=== PATIENT | female | born 1940 | race Caucasian/White ===

== ENCOUNTER → 2023-06-26 10:23 | Outpatient (REF) | payer MEDICARE, SELFPAY ==
[2023-06-26 13:15] LABS: ALT (SGPT) 17 U/L (0-35); AST (SGOT) 27 U/L (14-36); Albumin 3.7 g/dl (3.5-5.0); Alkaline Phosphatase 74 U/L (38-126); Direct Bilirubin 0.5 mg/dl (0.0-0.4); Iron 108 ug/dl (37-170); Total Bilirubin 1.2 mg/dl (0.2-1.3); Total Protein 6.4 g/dl (6.3-8.2)
[2023-06-26 13:24] LABS: Percent Saturation 42 % (20-50); Total Iron Binding Capacity 255 ug/dl (265-497)
[2023-06-26 13:48] LABS: Ferritin 67.5 ng/ml (11.1-264.0)
[2023-06-26 14:24] LABS: Vitamin B12 344 pg/ml (239-931)
[2023-06-26 18:08] LABS: Folate 7.7 ng/ml (2.76-20)
== END ==
LOC: HWLAB 10:23
PROVIDERS: ATTENDING PHYSICIAN Internal Medicine Hematology & Oncology; FAMILY PHYSICIAN Family Medicine
DX: Z85.43 Personal history of malignant neoplasm of ovary (principal); C50.411 Malignant neoplasm of upper-outer quadrant of right female breast; Z15.01 Genetic susceptibility to malignant neoplasm of breast; K56.609 Unspecified intestinal obstruction, unspecified as to partial versus complete obstruction
CPT/HCPCS: 36415; 80076; 82607; 82728; 82746; 83540; 83550

== ENCOUNTER → 2023-07-12 09:42 | Outpatient (REF) | payer MEDICARE, SELFPAY | LOC: WDC 09:42 | PROVIDERS: ATTENDING PHYSICIAN Internal Medicine Hematology & Oncology; FAMILY PHYSICIAN Family Medicine; REFERRING PHYSICIAN Nurse Practitioner Adult Health | DX: N64.4 Mastodynia (principal) | CPT/HCPCS: 76642; 77062; 77066 ==

== ENCOUNTER → 2023-07-29 10:04 | Outpatient (REF) | payer MEDICARE, SELFPAY ==
[2023-07-29 13:05] LABS: ALT (SGPT) 16 U/L (0-35); AST (SGOT) 27 U/L (14-36); Albumin 3.9 g/dl (3.5-5.0); Alkaline Phosphatase 71 U/L (38-126); Blood Urea Nitrogen 24 mg/dl (7-17); Calcium 9.2 mg/dl (8.4-10.2); Carbon Dioxide 28 mmol/L (22-30); Chloride 108 mmol/L (98-107); Direct Bilirubin 0.1 mg/dl (0.0-0.4); Glucose 90 mg/dl (70-99); Sodium 138 mmol/L (135-145); Total Bilirubin 1.3 mg/dl (0.2-1.3); Total Protein 6.7 g/dl (6.3-8.2); eGFR 45.19
[2023-07-29 13:14] LABS: NT-proBNP 142 pg/ml
[2023-07-29 13:35] LABS: Cortisol, Random 11.4 ug/dl
[2023-07-29 15:56] LABS: Protein/creatinine Ratio 0.9; Urine Protein 99 mg/dl
[2023-07-29 19:19] LABS: CA 125 < 5.5 U/mL (0-35)
[2023-08-02 02:42] LABS: 24 Hour Urine Total Volume Random mL; Urine Collection Length Random hr; Urine Free Kappa Light Chains 10.98 mg/L (0.00-32.90); Urine Free Lambda Light Chains 2.58 mg/L (0.00-3.79)
[2023-08-02 19:42] LABS: Albumin 3.74 g/dL (3.75-5.01); Alpha 1 Globulin 0.26 g/dL (0.19-0.46); Alpha 2 Globulin 0.75 g/dL (0.48-1.05); SPEP IFE Reflex Not Done; Total Protein-Electrophoresis 6.6 g/dL (6.3-8.2)
== END ==
LOC: HWLAB 10:04
PROVIDERS: ATTENDING PHYSICIAN Specialist; FAMILY PHYSICIAN Family Medicine; REFERRING PHYSICIAN Internal Medicine Hematology & Oncology
DX: I95.89 Other hypotension (principal); Z85.43 Personal history of malignant neoplasm of ovary; C50.411 Malignant neoplasm of upper-outer quadrant of right female breast; Z15.01 Genetic susceptibility to malignant neoplasm of breast
CPT/HCPCS: 36415; 80053; 82248; 82533; 82570; 83521; 83880; 84100; 84155; 84156; 84165; 86304; 86335

== ENCOUNTER → 2023-09-23 12:23 | Outpatient (REF) | payer MEDICARE, SELFPAY | LOC: HWLAB 12:23 | PROVIDERS: ATTENDING PHYSICIAN Specialist; FAMILY PHYSICIAN Family Medicine | DX: N39.0 Urinary tract infection, site not specified (principal) | CPT/HCPCS: 87071; 87086; 87186 ==

== ENCOUNTER → 2024-01-17 08:13 | Outpatient (REF) | payer MEDICARE, SELFPAY ==
[2024-01-17 10:15] LABS: ALT (SGPT) 15 U/L (0-35); AST (SGOT) 29 U/L (14-36); Albumin 4.1 g/dl (3.5-5.0); Alkaline Phosphatase 75 U/L (38-126); Direct Bilirubin 0.3 mg/dl (0.0-0.4); Iron 101 ug/dl (37-170); Total Bilirubin 1.4 mg/dl (0.2-1.3); Total Protein 6.7 g/dl (6.3-8.2)
[2024-01-17 10:24] LABS: Percent Saturation 40 % (20-50); Total Iron Binding Capacity 252 ug/dl (265-497)
[2024-01-17 10:58] LABS: Ferritin 76.2 ng/ml (11.1-264.0)
[2024-01-17 11:29] LABS: Folate 9.4 ng/ml (2.76-20); Vitamin B12 690 pg/ml (239-931)
== END ==
LOC: HWLAB 08:13
PROVIDERS: ATTENDING PHYSICIAN Internal Medicine Hematology & Oncology; FAMILY PHYSICIAN Family Medicine
DX: Z85.43 Personal history of malignant neoplasm of ovary (principal); C50.411 Malignant neoplasm of upper-outer quadrant of right female breast; Z15.01 Genetic susceptibility to malignant neoplasm of breast; K56.609 Unspecified intestinal obstruction, unspecified as to partial versus complete obstruction; N18.31 Chronic kidney disease, stage 3a
CPT/HCPCS: 36415; 80076; 82607; 82728; 82746; 83540; 83550

== ENCOUNTER → 2024-01-28 11:33 | Outpatient (REF) | payer MEDICARE, SELFPAY ==
[2024-01-28 16:11] LABS: Urine Albumin 1+ (Neg - Trace); Urine Bilirubin Negative (Negative); Urine Character Very Cloudy (Clear); Urine Color Yellow; Urine Glucose Negative (Negative); Urine Ketone Negative (Negative); Urine Leukocyte 2+ (Negative); Urine Nitrite Negative (Negative); Urine Occult Blood 3+ (Negative); Urine Specific Gravity 1.015 (<1.030); Urine Urobilinogen Negative (Neg - 1+)
[2024-01-28 16:28] LABS: Urine Bacteria Many (Negative); Urine White Cell 50-60 /HPF (0-5)
== END ==
LOC: HWLAB 11:33
PROVIDERS: ATTENDING PHYSICIAN Urology; FAMILY PHYSICIAN Family Medicine
DX: N30.90 Cystitis, unspecified without hematuria (principal)
CPT/HCPCS: 81003; 81015; 87077; 87086; 87186

== ENCOUNTER → 2024-02-06 12:13 | Outpatient (REF) | payer MEDICARE, SELFPAY ==
[2024-02-06 16:54] LABS: Urine Albumin Trace (Neg - Trace); Urine Bilirubin Negative (Negative); Urine Character Slightly Cloudy (Clear); Urine Color Yellow; Urine Glucose Negative (Negative); Urine Ketone Negative (Negative); Urine Leukocyte 2+ (Negative); Urine Nitrite Negative (Negative); Urine Occult Blood 3+ (Negative); Urine Urobilinogen Negative (Neg - 1+)
[2024-02-06 17:28] LABS: Urine Bacteria Many (Negative); Urine White Cell 30-40 /HPF (0-5)
== END ==
LOC: HWLAB 12:13
PROVIDERS: ATTENDING PHYSICIAN Specialist; FAMILY PHYSICIAN Family Medicine
DX: N39.0 Urinary tract infection, site not specified (principal)
CPT/HCPCS: 81003; 81015; 87077; 87086; 87186

== ENCOUNTER → 2024-02-13 07:45 | Outpatient (REF) | payer MEDICARE, SELFPAY | LOC: HWRAD 07:45 | PROVIDERS: ATTENDING PHYSICIAN Internal Medicine Hematology & Oncology; FAMILY PHYSICIAN Family Medicine | DX: Z85.43 Personal history of malignant neoplasm of ovary (principal); C50.411 Malignant neoplasm of upper-outer quadrant of right female breast; Z15.01 Genetic susceptibility to malignant neoplasm of breast | CPT/HCPCS: 76700 ==

== ENCOUNTER → 2024-02-27 11:10 | Outpatient (REF) | payer MEDICARE, SELFPAY ==
[2024-02-27 13:13] LABS: ALT (SGPT) 18 U/L (0-35); AST (SGOT) 29 U/L (14-36); Albumin 4.2 g/dl (3.5-5.0); Alkaline Phosphatase 72 U/L (38-126); Direct Bilirubin 0.3 mg/dl (0.0-0.4); Total Bilirubin 1.5 mg/dl (0.2-1.3)
== END ==
LOC: HWLAB 11:10
PROVIDERS: ATTENDING PHYSICIAN Nurse Practitioner Adult Health; FAMILY PHYSICIAN Family Medicine
DX: Z85.43 Personal history of malignant neoplasm of ovary (principal); C50.411 Malignant neoplasm of upper-outer quadrant of right female breast; Z15.01 Genetic susceptibility to malignant neoplasm of breast
CPT/HCPCS: 36415; 80076

== ENCOUNTER → 2024-05-21 09:59 | Outpatient (REF) | payer MEDICARE, SELFPAY ==
[2024-05-21 13:13] LABS: Urine Albumin 1+ (Neg - Trace); Urine Bilirubin Negative (Negative); Urine Character Very Cloudy (Clear); Urine Color Yellow; Urine Glucose Negative (Negative); Urine Ketone Negative (Negative); Urine Leukocyte 2+ (Negative); Urine Nitrite Negative (Negative); Urine Occult Blood 3+ (Negative); Urine Specific Gravity 1.015 (<1.030); Urine Urobilinogen Negative (Neg - 1+)
[2024-05-21 14:58] LABS: Urine Squamous Cell 0-2 /LPF (Few)
[2024-05-21 15:01] LABS: Urine Amorphous Seen
[2024-05-21 15:02] LABS: Urine White Cell 50-60 /HPF (0-5)
[2024-05-21 15:03] LABS: Urine Bacteria Many (Negative)
== END ==
LOC: HWLAB 09:59
PROVIDERS: ATTENDING PHYSICIAN Specialist; FAMILY PHYSICIAN Family Medicine
DX: N39.0 Urinary tract infection, site not specified (principal)
CPT/HCPCS: 81003; 81015; 87077; 87086

== ENCOUNTER → 2024-06-03 11:58 | Outpatient (REF) | payer MEDICARE, SELFPAY ==
[2024-06-03 16:23] LABS: % Basophils 0.6 % (0-2); % Eosinophils 2.3 % (0-6); % Lymphocytes 26.6 % (20.5-51.1); % Monocytes 9.3 % (1.7-9.3); % Neutrophils 61.2 % (42.2-75.2); Absolute Eosinophils 0.1 10^3/uL (0-0.7); Absolute Lymphocytes 1.3 10^3/uL (1.2-3.4); Absolute Monocytes 0.5 10^3/uL (0.1-0.6); Hematocrit 35.8 % (37.0-47.0); Hemoglobin 11.5 g/dL (12.0-16.0); Mean Corp Hgb Conc. 32.1 g/dL (33.0-37.0); Mean Corpuscular Hgb 30.6 pg (27.0-31.0); Mean Corpuscular Volume 95.2 fL (81.0-99.0); Mean Platelet Volume 9.9 fL (7.4-10.4); Nucleated Red Blood Cells % 0 %; Platelet Count 165 10^3/uL (130-400); Red Blood Cell Count 3.76 10^6/uL (4.20-5.40); Red Cell Dist. Width 12.9 % (11.5-14.5); White Blood Cell Count 4.8 10^3/uL (4.8-10.8)
[2024-06-03 16:33] LABS: ALT (SGPT) 18 U/L (0-35); AST (SGOT) 29 U/L (14-36); Albumin 4.1 g/dl (3.5-5.0); Alkaline Phosphatase 68 U/L (38-126); Blood Urea Nitrogen 29 mg/dl (7-17); Calcium 9.5 mg/dl (8.4-10.2); Carbon Dioxide 29 mmol/L (22-30); Chloride 103 mmol/L (98-107); Glucose 86 mg/dl (70-99); HDL Cholesterol 62 mg/dl; LDL Cholesterol, Calculated 79 mg/dl; Potassium 4.3 mmol/L (3.5-5.1); Sodium 140 mmol/L (135-145); Total Bilirubin 1.3 mg/dl (0.2-1.3); Total Cholesterol 165 mg/dl (50-199); Total Protein 6.7 g/dl (6.3-8.2); Triglyceride 121 mg/dl (10-149); Uric Acid 6.5 mg/dl (2.5-6.2); Very Low Density Lipoprotein 24 mg/dl (0-30)
[2024-06-03 17:04] LABS: TSH 0.22 uIU/ml (0.47-4.68)
[2024-06-04 08:32] LABS: Glycohemoglobin (HgbA1c) 5.8 % (4.0-5.6)
== END ==
LOC: HWLAB 11:58
PROVIDERS: ATTENDING PHYSICIAN Family Medicine
DX: R73.01 Impaired fasting glucose (principal); Z87.39 Personal history of other diseases of the musculoskeletal system and connective tissue; N28.9 Disorder of kidney and ureter, unspecified; E78.00 Pure hypercholesterolemia, unspecified; Z00.00 Encounter for general adult medical examination without abnormal findings; E03.9 Hypothyroidism, unspecified
CPT/HCPCS: 36415; 80053; 80061; 83036; 84443; 84550; 85025

== ENCOUNTER → 2024-08-03 11:51 | Outpatient (REF) | payer MEDICARE, SELFPAY ==
[2024-08-03 17:23] LABS: % Basophils 0.9 % (0-2); % Eosinophils 3.2 % (0-6); % Immature Granulocytes 0.2 % (0-0.5); % Lymphocytes 27.1 % (20.5-51.1); % Monocytes 8.9 % (1.7-9.3); % Neutrophils 59.7 % (42.2-75.2); Absolute Basophils 0.1 10^3/uL (0-0.2); Absolute Eosinophils 0.2 10^3/uL (0-0.7); Absolute Lymphocytes 1.5 10^3/uL (1.2-3.4); Absolute Monocytes 0.5 10^3/uL (0.1-0.6); Absolute Neutrophils 3.2 10^3/uL (1.4-6.5); Hemoglobin 12.4 g/dL (12.0-16.0); Mean Corp Hgb Conc. 33.5 g/dL (33.0-37.0); Mean Corpuscular Hgb 30.9 pg (27.0-31.0); Mean Corpuscular Volume 92.3 fL (81.0-99.0); Nucleated Red Blood Cells % 0 %; Platelet Count 191 10^3/uL (130-400); Red Blood Cell Count 4.01 10^6/uL (4.20-5.40); Red Cell Dist. Width 13.1 % (11.5-14.5); White Blood Cell Count 5.4 10^3/uL (4.8-10.8)
[2024-08-03 17:34] LABS: ALT (SGPT) 30 U/L (0-35); AST (SGOT) 35 U/L (14-36); Albumin 4.1 g/dl (3.5-5.0); Alkaline Phosphatase 78 U/L (38-126); Direct Bilirubin 0.2 mg/dl (0.0-0.4); Total Bilirubin 1.2 mg/dl (0.2-1.3); Total Protein 6.9 g/dl (6.3-8.2)
== END ==
LOC: HWLAB 11:51
PROVIDERS: ATTENDING PHYSICIAN Internal Medicine Hematology & Oncology; FAMILY PHYSICIAN Family Medicine
DX: Z85.43 Personal history of malignant neoplasm of ovary (principal); C50.411 Malignant neoplasm of upper-outer quadrant of right female breast; Z15.01 Genetic susceptibility to malignant neoplasm of breast
CPT/HCPCS: 36415; 80076; 85025

== ENCOUNTER → 2024-08-19 13:56 | Outpatient (REF) | payer MEDICARE, SELFPAY | LOC: HWRAD 13:56 | PROVIDERS: ATTENDING PHYSICIAN Specialist; FAMILY PHYSICIAN Family Medicine | DX: N18.31 Chronic kidney disease, stage 3a (principal) | CPT/HCPCS: 76770 ==

== ENCOUNTER → 2024-11-30 16:35 | Outpatient (REF) | payer OTHER, SELFPAY ==
[2024-11-30 17:38] LABS: Urine Character Slightly Cloudy (Clear)
[2024-11-30 19:26] LABS: Urine Red Blood Cell 0-2 /HPF (0-2); Urine Squamous Cell 0-2 /LPF (Few)
== END ==
LOC: CLAB 16:35
PROVIDERS: ATTENDING PHYSICIAN Obstetrics & Gynecology
DX: N39.0 Urinary tract infection, site not specified (principal)
CPT/HCPCS: 81003; 81015; 87077; 87086; 87186

== ENCOUNTER → 2025-02-18 10:13 | Outpatient (REF) | payer OTHER, SELFPAY ==
[2025-02-18 12:43] LABS: Hematocrit 37.2 % (37.0-47.0); Hemoglobin 12.2 g/dL (12.0-16.0); Mean Corp Hgb Conc. 32.8 g/dL (33.0-37.0); Mean Corpuscular Volume 91.4 fL (81.0-99.0); Nucleated Red Blood Cells % 0 %; Platelet Count 167 10^3/uL (130-400); Red Cell Dist. Width 13.2 % (11.5-14.5)
[2025-02-18 12:46] LABS: ALT (SGPT) 13 U/L (0-35); AST (SGOT) 23 U/L (14-36); Albumin 4.0 g/dl (3.5-5.0); Alkaline Phosphatase 67 U/L (38-126); Total Protein 6.9 g/dl (6.3-8.2)
== END ==
LOC: WDC 10:13
PROVIDERS: ATTENDING PHYSICIAN Internal Medicine Hematology & Oncology; FAMILY PHYSICIAN Internal Medicine
DX: Z85.43 Personal history of malignant neoplasm of ovary (principal); C50.411 Malignant neoplasm of upper-outer quadrant of right female breast; Z15.01 Genetic susceptibility to malignant neoplasm of breast; Z12.31 Encounter for screening mammogram for malignant neoplasm of breast; R92.8 Other abnormal and inconclusive findings on diagnostic imaging of breast
CPT/HCPCS: 36415; 77063; 77067; 80076; 85025

== ENCOUNTER → 2025-03-01 12:02 | Outpatient (REF) | payer OTHER, SELFPAY ==
[2025-03-01 15:49] LABS: Albumin 4.2 g/dl (3.5-5.0); Blood Urea Nitrogen 29 mg/dl (7-17); Calcium 9.5 mg/dl (8.4-10.2); Carbon Dioxide 27 mmol/L (22-30); Chloride 107 mmol/L (98-107); Glucose 97 mg/dl (70-99); Potassium 4.1 mmol/L (3.5-5.1); Sodium 142 mmol/L (135-145); Uric Acid 6.4 mg/dl (2.5-6.2); eGFR 44.64
== END ==
LOC: HWLAB 12:02
PROVIDERS: ATTENDING PHYSICIAN Specialist; FAMILY PHYSICIAN Internal Medicine
DX: N18.31 Chronic kidney disease, stage 3a (principal); E03.9 Hypothyroidism, unspecified; Z87.39 Personal history of other diseases of the musculoskeletal system and connective tissue
CPT/HCPCS: 36415; 80069; 83970; 84443; 84550

== ENCOUNTER → 2025-04-27 07:03 | Outpatient (REF) | payer OTHER, SELFPAY | LOC: HWRAD 07:03 | PROVIDERS: ATTENDING PHYSICIAN Nurse Practitioner Adult Health; FAMILY PHYSICIAN Internal Medicine | DX: Z13.820 Encounter for screening for osteoporosis (principal); M85.89 Other specified disorders of bone density and structure, multiple sites; Z78.0 Asymptomatic menopausal state | CPT/HCPCS: 77080 ==